=== PATIENT | female | born 1975 | race Caucasian/White ===

== ENCOUNTER → 2018-06-26 08:38 | Outpatient (CLI) | payer OTHER, MEDICAID, SELFPAY ==
--- NOTE | 2018-06-26 | DI.MG.S_ITS ---
BILATERAL DIGITAL SCREENING MAMMOGRAM 3D/2D WITH CAD: 06/26/2018 CLINICAL: Routine screening. Family history of breast cancer. Comparison is made to exam dated: 04/15/2014 mammogram - [facility]. The tissue of both breasts is extremely dense, which lowers the sensitivity of mammography. Current study was also evaluated with a Computer Aided Detection (CAD) system. There are new grouped pleomorphic calcifications in the left breast at 12 o'clock middle depth. No other significant masses, calcifications, or other findings are seen in either breast. IMPRESSION: INCOMPLETE: NEEDS ADDITIONAL IMAGING EVALUATION The new grouped pleomorphic calcifications in the left breast are indeterminate. Mediolateral and spot magnification views are recommended. This exam was interpreted at Station ID: [id number]. NOTE: For mammograms, a report in lay terms will be sent to the patient. Approximately 15% of breast malignancies will not be visualized mammographically. In the management of a palpable breast mass, a negative mammogram must not discourage biopsy of a clinically suspicious lesion. Electronically Signed By: Gregorio reece/christina:06/26/2018 11:33:32 letter sent: Additional Imaging Needed ACR BI-RADS Category 0: Incomplete 3340F
== END ==
PROVIDERS: PCP Family Medicine; Visit Provider Family Medicine
DX: Z12.31 Encounter for screening mammogram for malignant neoplasm of breast (principal); Z80.3 Family history of malignant neoplasm of breast
CPT/HCPCS: 77063; 77067

== ENCOUNTER → 2018-07-16 09:36 | Outpatient (CLI) | payer OTHER, MEDICAID, SELFPAY ==
--- NOTE | 2018-07-16 | DI.MG.S_ITS ---
UNILATERAL LEFT DIGITAL DIAGNOSTIC MAMMOGRAM 3D/2D WITH ADDITIONAL VIEWS: 07/16/2018 CLINICAL: Additional evaluation requested from prior study. Comparison is made to exams dated: 06/26/2018 mammogram - [facility] and 04/15/2014 mammogram - [facility]. The tissue of left breast is extremely dense, which lowers the sensitivity of mammography. There are new grouped fine pleomorphic punctate calcifications in the left breast at 12 o'clock middle depth. No other significant masses or calcifications are seen in the breast. IMPRESSION: HIGHLY SUGGESTIVE OF MALIGNANCY The new grouped fine pleomorphic punctate calcifications in the left breast are highly suggestive of malignancy. A stereotactic biopsy is recommended. The findings were discussed with the patient at the conclusion of the study by Dr. Trejo. This exam was interpreted at Station ID: [id number]. NOTE: For mammograms, a report in lay terms will be sent to the patient. Approximately 15% of breast malignancies will not be visualized mammographically. In the management of a palpable breast mass, a negative mammogram must not discourage biopsy of a clinically suspicious lesion. Electronically Signed By: Omar ceja/:07/16/2018 11:14:14 letter sent: Biopsy Required ACR BI-RADS Category 5: Highly suggestive of malignancy 3345F
== END ==
PROVIDERS: PCP Family Medicine; Visit Provider Family Medicine
DX: R92.1 Mammographic calcification found on diagnostic imaging of breast (principal)
CPT/HCPCS: 77065; G0279

== ENCOUNTER → 2020-04-07 11:40 | Outpatient (CLI) | payer OTHER, MEDICAID, SELFPAY ==
--- NOTE | 2020-04-07 11:43 | DI.MRI.S_ITS ---
PROCEDURE: MR CHEST WO/W CON INDICATIONS: sternum and right greater than left breast pain TECHNIQUE: Noncontrast coronal T1 spin echo and STIR, sagittal T1 spin echo with fat saturation and STIR, axial T1 spin echo and T2 fast spin echo with fat saturation. After the administration of contrast, axial/sagittal/coronal T1 spin echo with fat saturation through the sternum . COMPARISON: [facility], CT, CT ANGIO CHEST PE, 10/24/2018, 12:52. FINDINGS: Image quality: Excellent. Incidentally noted bilateral breast implants. The visualized bone marrow demonstrates normal signal on all sequences. The overlying cortex appears intact. No abnormal intraosseous enhancement. No suspicious sternal signal abnormality or enhancement Soft tissues: No soft tissue masses are visualized. The scanned muscles demonstrate normal overall bulk and internal signal. Subcutaneous tissues appear normal as well. No abnormal soft tissue enhancement. Incidentally noted presumed hepatic cyst with homogeneous T2 hyperintensity. IMPRESSION: No specific signal abnormality or enhancement to explain sternal and breast pain. Of note, if the patient's symptoms persist, recommend further investigation /correlation with mammogram/ultrasound. Dictated by: Lemuel Fry M.D. on 04/07/2020 at 14:48 Approved by: Lemuel Fry M.D. on 04/07/2020 at 15:03
== END ==
PROVIDERS: PCP Family Medicine; Referring Provider Nurse Practitioner Family; Visit Provider Nurse Practitioner Family
DX: C50.011 Malignant neoplasm of nipple and areola, right female breast (principal); R07.89 Other chest pain; N64.4 Mastodynia; Z98.82 Breast implant status
CPT/HCPCS: 71552

== ENCOUNTER → 2021-03-18 11:31 | Outpatient (CLI) | payer OTHER, MEDICAID, SELFPAY ==
--- NOTE | 2021-03-18 | DI.RAD.S_ITS ---
PROCEDURE: XR ANKLE LT 2V INDICATIONS: Pain in left ankle and joints of left foot TECHNIQUE: 2 views of the ankle were acquired. COMPARISON: None. FINDINGS: Bones: No fractures or dislocations. Mild joint space loss and osteophytosis along the posterior talotibial articulation. Ankle mortise is normally aligned. No suspicious bony lesions. Soft tissues: No tibiotalar joint effusion. IMPRESSION: No acute osseous abnormality. Dictated by: Ricky Wilson M.D. on 03/18/2021 at 13:29 Approved by: Ricky Wilson M.D. on 03/18/2021 at 13:31
== END ==
PROVIDERS: PCP Nurse Practitioner Family; Referring Provider Nurse Practitioner Family; Visit Provider Nurse Practitioner Family
DX: S99.912A Unspecified injury of left ankle, initial encounter (principal); M25.572 Pain in left ankle and joints of left foot; M25.472 Effusion, left ankle
CPT/HCPCS: 73600

== ENCOUNTER → 2021-06-16 12:30 | Outpatient (CLI) | payer OTHER, MEDICAID, SELFPAY ==
--- NOTE | 2021-06-16 12:32 | DI.US.S_ITS ---
PROCEDURE: US THYROID INDICATIONS: CONCERN FOR HYPERTHYROIDOSIS TECHNIQUE: Real-time scanning was performed of the thyroid gland, with image documentation. COMPARISON: None. FINDINGS: Right: Thyroid lobe measures 4.6 x 1.7 x 1.3 cm, and contains a small focal nodule, but is otherwise mildly heterogeneous in echotexture. Left: Thyroid lobe measures 3.5 x 1.5 x 1.0 cm, and is mildly heterogeneous in echotexture. Isthmus: 2.6 mm thick. Nodule number: 1 Location: Right middle/lower pole Size: 0.7 x 0.4 x 0.5 cm. Composition: Predominantly cystic Echogenicity: Isoechoic/anechoic Shape: wider than tall. Margins: Smooth Echogenic foci: Comet-tail artifact Total points: 1 ACR TI-RADS category: Not suspicious IMPRESSION: A single sub cm thyroid nodule is not suspicious for malignancy. No further workup is recommended. In the absence of development of a palpable lump or symptoms, no further imaging follow-up is suggested at this time. Please see recommendations below. ACR TI-RADS definitions and recommendations: TI-RADS 1 (benign): 0 points. FNA not needed. TI-RADS 2 (not suspicious): 2 points. FNA not needed. TI-RADS 3 (mildly suspicious): 3 points. * FNA if 2.5 cm or larger, follow up if 1.5 cm or larger (at 1, 3, and 5 years). TI-RADS 4 (moderately suspicious): 4-6 points. * FNA if 1.5 cm or larger, follow up if 1 cm or larger (at 1, 2, 3, and 5 years). TI-RADS 5 (highly suspicious): 7 points or more. * FNA if 1 cm or larger, follow up if 0.5 cm or larger (every year for 5 years). Dictated by: Jd Acuna M.D. on 06/16/2021 at 13:52 Approved by: Jd Acuna M.D. on 06/16/2021 at 13:56
== END ==
PROVIDERS: PCP Nurse Practitioner Family; Referring Provider Nurse Practitioner Family; Visit Provider Nurse Practitioner Family
DX: E04.1 Nontoxic single thyroid nodule (principal); R53.82 Chronic fatigue, unspecified
CPT/HCPCS: 76536

== ENCOUNTER → 2022-05-31 13:41 | Outpatient (CLI) | payer OTHER, MEDICAID, SELFPAY ==
--- NOTE | 2022-05-31 | DI.MRI.S_ITS ---
PROCEDURE: MR LUMBAR SPINE WO CON INDICATIONS: Foot drop, left foot TECHNIQUE: Noncontrast sagittal T1 spin echo and T2 fast echo, sagittal STIR, and T2 fast spin echo through the lumbar spine. In cases with scoliosis, additional coronal T2 fast spin echo may be performed. COMPARISON: None. FINDINGS: Image quality: Excellent. Alignment and Curvature: There is normal bony alignment. Bone Marrow: Marrow is of normal overall signal. No acute vertebral body compression fractures. Spinal Cord: Conus medullaris terminates at the L1 level. Visualized cord demonstrates normal signal and size. Paraspinous Soft Tissues: No paravertebral masses. T12-L1: Normal appearance. L1-L2: Normal appearance. L2-L3: Loss of disc signal. Mild, diffuse disc bulge. Small central disc protrusion. No central stenosis. No neural foraminal narrowing. No neural compression. L3-L4: Loss of disc signal. Mild, diffuse disc bulge. No central stenosis. No neural foraminal narrowing. No neural compression. L4-L5: Loss of disc signal and slight loss of disc height. Mild, diffuse disc bulge. Small central/left central disc protrusion. Mild narrowing of the central canal. Mild left neural foraminal narrowing. No neural compression. Fissure noted in the left foraminal annulus. L5-S1: Loss of disc signal. Mild, diffuse disc bulge. No central stenosis. Mild right neural foraminal narrowing. No neural compression. Fissure noted in the posterior annulus. IMPRESSION: 1. Multilevel degenerative disc disease. 2. No severe central canal narrowing. 3. No severe neural foraminal narrowing. 4. No neural compression. 5. L4-L5 and L5-S1 disc annulus fissures. Dictated by: Rere Ricks MD, PhD on 05/31/2022 at 14:58 Approved by: Rere Ricks MD, PhD on 05/31/2022 at 15:00
== END ==
PROVIDERS: PCP Nurse Practitioner Family; Referring Provider Nurse Practitioner Family; Visit Provider Nurse Practitioner Family
DX: M51.36 Other intervertebral disc degeneration, lumbar region (principal); M51.37 Other intervertebral disc degeneration, lumbosacral region; M51.86 Other intervertebral disc disorders, lumbar region; M51.87 Other intervertebral disc disorders, lumbosacral region; M21.372 Foot drop, left foot; R29.2 Abnormal reflex
CPT/HCPCS: 72148

== ENCOUNTER → 2022-12-15 15:43 | Outpatient (CLI) | payer OTHER, MEDICAID, SELFPAY ==
--- NOTE | 2022-12-15 | DI.MRI.S_ITS ---
PROCEDURE: MR TMJ WO CON INDICATIONS: Dislocation of jaw, TECHNIQUE: Axial T1 spin echo, coronal and sagittal PD fast spin echo through the temporomandibular joints, in both the closed- and open-mouth positions. COMPARISON: None. FINDINGS: Image quality: Excellent. Right: Joint is normally aligned on closed and open-mouth positioning. Articular disk demonstrates anterior displacement. Anteriorly displaced articular disc is not reduced in open-mouth position. No bony erosions or osteophytes. Left: Joint is normally aligned on closed and open-mouth positioning. Articular disk demonstrates normal location and morphology. No bony erosions or osteophytes. IMPRESSION: Right TMJ articular disc anterior displacement without reduction. Dictated by: Rere Ricks MD, PhD on 12/15/2022 at 16:50 Approved by: Rere Ricks MD, PhD on 12/15/2022 at 16:54
== END ==
PROVIDERS: PCP Family Medicine; Referring Provider Family Medicine; Visit Provider Family Medicine
DX: S03.01XA Dislocation of jaw, right side, initial encounter (principal); X58.XXXA Exposure to other specified factors, initial encounter
CPT/HCPCS: 70336

== ENCOUNTER → 2023-11-07 12:02 | Outpatient (CLI) | payer OTHER, SELFPAY ==
--- NOTE | 2023-11-07 | DI.US.S_ITS ---
PROCEDURE: US THYROID INDICATIONS: FAMILY HISTORY OF THYROID CANCER. FOLLOW UP THYROID NODULE. TECHNIQUE: Real-time scanning was performed of the thyroid gland, with image documentation. COMPARISON: [facility], US, US THYROID, 06/16/2021, 12:58. FINDINGS: Thyroid: Right lobe measures 5.0 x 1.7 x 1.7 cm. Left lobe measures 4.1 x 1.1 x 1.0 cm. Isthmus is 3.5 cm thick. Echotexture is homogeneous. Nodule number: 1 Location: Right mid Size: 0.9 x 0.7 x 0.6 cm, previously 0.7 x 0.5 x 0.4 cm. Composition: Cystic Echogenicity: Isoechoic/anechoic Shape: Wider than tall Margins: Smooth Echogenic foci: None, comet tail artifact Total points: 1 ACR TI-RADS category: Benign IMPRESSION: Single 0.9 cm benign right thyroid nodule. No further imaging follow-up suggested per below recommendations. ACR TI-RADS definitions and recommendations: TI-RADS 1 (benign): 0 points. FNA not needed. TI-RADS 2 (not suspicious): 2 points. FNA not needed. TI-RADS 3 (mildly suspicious): 3 points. * FNA if 2.5 cm or larger, follow up if 1.5 cm or larger (at 1, 3, and 5 years). TI-RADS 4 (moderately suspicious): 4-6 points. * FNA if 1.5 cm or larger, follow up if 1 cm or larger (at 1, 2, 3, and 5 years). TI-RADS 5 (highly suspicious): 7 points or more. * FNA if 1 cm or larger, follow up if 0.5 cm or larger (every year for 5 years). Approved by: Kim Ramirez M.D.,Ph.D. on 11/07/2023 at 20:43
== END ==
PROVIDERS: PCP Family Medicine; Referring Provider Family Medicine; Visit Provider Family Medicine
DX: Z86.39 Personal history of other endocrine, nutritional and metabolic disease (principal); Z80.8 Family history of malignant neoplasm of other organs or systems; E04.1 Nontoxic single thyroid nodule
CPT/HCPCS: 76536